=== PATIENT | male | born 1960 | race Two or more races ===

== ENCOUNTER 2016-09-27 22:49 | Inpatient (IN) | payer MEDICARE, MEDICAID ==
[~2016-09-27] VITALS: Ht 162.6 cm; Wt 81.2 kg
[~2016-09-27 22:49] MED LIST: METO25TA3 PO
[2016-09-28 00:43] VITALS: BP 130/81
[2016-09-28 00:45] VITALS: BP 130/81
[2016-09-28] MEDS ORDERED: ATOR20TA PO (01:21)
[2016-09-28] MEDS ORDERED: TAMS-12 PO (01:21)
[2016-09-28] MEDS ORDERED: OMEP40CA37 PO (01:21)
[2016-09-28] MEDS ORDERED: FLUT16SP BNOSTRILS (01:21)
[2016-09-28] MEDS ORDERED: METO-302 PO (01:21)
[2016-09-28] MEDS ORDERED: ZOLPIDEM TARTRATE 5 MG TABLET PO PRN (05:00)
[2016-09-28] MEDS ORDERED: ONDANSETRON HCL/PF 4 MG/2 ML VIAL IVP PRN (05:00)
[2016-09-28] MEDS ORDERED: ACETAMINOPHEN 325 MG TABLET PO PRN (05:00)
[2016-09-28] MEDS ORDERED: MAG HYDROX/AL HYDROX/SIMETH 30 ML UDC PO PRN (05:00)
[2016-09-28] MEDS ORDERED: CEFTRIAXONE 1 G in IV D5W 50 ML IV SCH (05:00)
[2016-09-28] MEDS ORDERED: Z GUARD REMEDY 2 OZ OINT TP PRN (05:00)
[2016-09-28] MEDS ORDERED: HYDROCODONE/APAP 5/325MG 1 EACH TABLET PO PRN (05:00)
[2016-09-28] MEDS ORDERED: MAGNESIUM HYDROXIDE 30 ML UDC PO PRN (05:00)
[2016-09-28] MEDS ORDERED: ENOXAPARIN SODIUM 40 MG/0.4 ML DISP.SYRIN SQ SCH (05:00)
[2016-09-28] MEDS ORDERED: ENOXAPARIN SODIUM 40 MG/0.4 ML DISP.SYRIN SQ ONE (05:15)
[2016-09-28] MEDS ORDERED: IV NS 0.9% 1,000 ML ONE (05:17)
[2016-09-28] MEDS ORDERED: IV SET PRIMARY PUMP SET 1 EA INFUS.SET MC ONE ×2 (05:17→21:56)
[2016-09-28] MEDS: IV NS 0.9% 1,000 ML IV PRN ×2 (05:22→22:10)
[2016-09-28] MEDS ORDERED: ACETAMINOPHEN 325 MG TABLET ONE (06:42)
[2016-09-28] MEDS ORDERED: Medication Not On Formulary EA (Omeprazole 1 CAP) PO SCH (07:30)
[2016-09-28 08:00] VITALS: BP 112/69
[2016-09-28] MEDS: PANTOPRAZOLE 40 MG TABLET.DR PO SCH (10:14)
[2016-09-28] MEDS: TAMSULOSIN 0.4 MG CAP.SR.24H PO SCH (10:14)
[2016-09-28] MEDS: METOPROLOL SUCCINATE 25 MG TAB.SR.24H PO SCH (10:15)
[2016-09-28 11:13] LABS: BASOPHILS # (AUTO) 0.1 /CMM (0.0-0.2); BASOPHILS % (AUTO) 0.6 % (0.0-2.0); EOSINOPHILS % (AUTO) 0.3 % (0.0-6.0); HEMATOCRIT 37 % (39-51); HEMOGLOBIN 12.5 g/dL (13.5-17.5); LYMPHOCYTES # (AUTO) 1.8 /CMM (0.8-4.8); LYMPHOCYTES % (AUTO) 10.9 % (20.0-44.0); MEAN CORPUSCULAR HEMOGLOBIN 29 PG (26.0-33.0); MEAN CORPUSCULAR HGB CONC 34 g/dl (31.0-36.0); MEAN CORPUSCULAR VOLUME 85 fL (80-96); MONOCYTES # (AUTO) 1.3 /CMM (0.1-1.30); MONOCYTES % (AUTO) 8.2 % (2.0-12.0); NEUTROPHILS # (AUTO) 12.9 /CMM (1.8-8.9); PLATELET COUNT (AUTO) 217 /CMM (150-450); RDW COEFFICIENT OF VARIATION 14.2 (11.5-15.0); RED BLOOD CELL COUNT(AUTO) 4.37 MIL/uL (4.5-6.0); WHITE BLOOD COUNT (AUTO) 16.1 K/uL (4.3-11.0)
[2016-09-28 11:25] LABS: CALCIUM, SERUM 8.4 mg/dL (8.5-10.1); CREATININE 0.9 mg/dL (0.6-1.3); POTASSIUM 3.7 mmol/L (3.5-5.1)
[2016-09-28 16:00] VITALS: BP 109/75
[2016-09-28 16:01] VITALS: BP 109/75
[2016-09-28] MEDS: FLUTICASONE PROPIONATE 16 GM BOTTLE NS SCH (16:15)
[2016-09-28 17:54] LABS: IRON, SERUM 25 ug/dl (50-175); TOTAL IRON BINDING CAPACITY 332 ug/dl (250-450)
[2016-09-28] MEDS ORDERED: SECONDARY IV SET 1 EA INFUS.SET MC ONE (19:53)
[2016-09-28 20:00] VITALS: BP 111/70
[2016-09-28] MEDS: CEFTRIAXONE 1 G in IV D5W 50 ML IV SCH (20:01)
[2016-09-29 06:30] LABS: BASOPHILS % (AUTO) 0.3 % (0.0-2.0); EOSINOPHILS # (AUTO) 0.1 /CMM (0.0-0.7); EOSINOPHILS % (AUTO) 0.7 % (0.0-6.0); HEMATOCRIT 37 % (39-51); HEMOGLOBIN 12.2 g/dL (13.5-17.5); LYMPHOCYTES # (AUTO) 1.4 /CMM (0.8-4.8); MEAN CORPUSCULAR HEMOGLOBIN 28 PG (26.0-33.0); MEAN CORPUSCULAR HGB CONC 33 g/dl (31.0-36.0); MEAN CORPUSCULAR VOLUME 85 fL (80-96); MONOCYTES # (AUTO) 1.5 /CMM (0.1-1.30); NEUTROPHILS # (AUTO) 10.9 /CMM (1.8-8.9); PLATELET COUNT (AUTO) 222 /CMM (150-450); RDW COEFFICIENT OF VARIATION 14.8 (11.5-15.0)
[2016-09-29 06:47] LABS: CALCIUM, SERUM 8.2 mg/dL (8.5-10.1); CREATININE 0.8 mg/dL (0.6-1.3); MAGNESIUM 1.9 mg/dL (1.8-2.4); PHOSPHORUS 2.9 mg/dL (2.5-4.9); POTASSIUM 3.6 mmol/L (3.5-5.1)
[2016-09-29 07:18] LABS: APPEARANCE,URINE CLEAR (CLEAR); BILIRUBIN,URINE NEGATIVE (NEGATIVE); BLOOD, URINE TRACE Ery/uL (NEGATIVE); COLOR,URINE YELLOW (YELLOW); KETONES,URINE NEGATIVE (NEGATIVE); LEUKOCYTE ESTERASE ,URINE TRACE (NEGATIVE); NITRITE, URINE NEGATIVE (NEGATIVE); PROTEIN,URINE NEGATIVE (NEGATIVE); UGLUCOSE NEGATIVE (NEGATIVE); UROBILINOGEN,URINE 0.2 EU/dL (0.2)
[2016-09-29 07:27] LABS: BACTERIA,URINE Rare /HPF (None Seen); SQUAMOUS EPITHELIAL CELL,UR None Seen /HPF (None Seen)
[2016-09-29 08:00] VITALS: BP 121/82
[2016-09-29] MEDS: PANTOPRAZOLE 40 MG TABLET.DR PO SCH (08:23)
[2016-09-29] MEDS: METOPROLOL SUCCINATE 25 MG TAB.SR.24H PO SCH (08:23)
[2016-09-29] MEDS: TAMSULOSIN 0.4 MG CAP.SR.24H PO SCH (08:23)
[2016-09-29] MEDS: FLUTICASONE PROPIONATE 16 GM BOTTLE NS SCH (08:24)
[2016-09-29] MEDS: ENOXAPARIN SODIUM 40 MG/0.4 ML DISP.SYRIN SQ SCH (08:24)
[2016-09-29] MEDS: ATORVASTATIN 10 MG TABLET PO SCH (10:05)
[2016-09-29 16:00] VITALS: BP 117/77
[2016-09-29 20:00] VITALS: BP 109/71
[2016-09-29] MEDS: CEFTRIAXONE 1 G in IV D5W 50 ML IV SCH (21:09)
[2016-09-30 06:40] LABS: BASOPHILS % (AUTO) 0.5 % (0.0-2.0); EOSINOPHILS # (AUTO) 0.2 /CMM (0.0-0.7); EOSINOPHILS % (AUTO) 2.1 % (0.0-6.0); HEMATOCRIT 36 % (39-51); LYMPHOCYTES # (AUTO) 1.8 /CMM (0.8-4.8); LYMPHOCYTES % (AUTO) 21.9 % (20.0-44.0); MEAN CORPUSCULAR HEMOGLOBIN 29 PG (26.0-33.0); MEAN CORPUSCULAR HGB CONC 34 g/dl (31.0-36.0); MEAN CORPUSCULAR VOLUME 86 fL (80-96); MONOCYTES % (AUTO) 12.2 % (2.0-12.0); NEUTROPHILS # (AUTO) 5.3 /CMM (1.8-8.9); NEUTROPHILS % (AUTO) 63.3 % (43.0-81.0); PLATELET COUNT (AUTO) 252 /CMM (150-450); RDW COEFFICIENT OF VARIATION 14.9 (11.5-15.0); RED BLOOD CELL COUNT(AUTO) 4.15 MIL/uL (4.5-6.0); WHITE BLOOD COUNT (AUTO) 8.4 K/uL (4.3-11.0)
[2016-09-30 06:52] LABS: CALCIUM, SERUM 8.2 mg/dL (8.5-10.1); CREATININE 0.8 mg/dL (0.6-1.3); MAGNESIUM 2.1 mg/dL (1.8-2.4); PHOSPHORUS 3.7 mg/dL (2.5-4.9); POTASSIUM 3.7 mmol/L (3.5-5.1)
[2016-09-30 08:00] VITALS: BP 114/77
[2016-09-30] MEDS: ATORVASTATIN 10 MG TABLET PO SCH (08:47)
[2016-09-30] MEDS: TAMSULOSIN 0.4 MG CAP.SR.24H PO SCH (08:47)
[2016-09-30] MEDS: PANTOPRAZOLE 40 MG TABLET.DR PO SCH (08:47)
[2016-09-30] MEDS: METOPROLOL SUCCINATE 25 MG TAB.SR.24H PO SCH (08:49)
[2016-09-30] MEDS: ENOXAPARIN SODIUM 40 MG/0.4 ML DISP.SYRIN SQ SCH (08:50)
[2016-09-30] MEDS: FLUTICASONE PROPIONATE 16 GM BOTTLE NS SCH (08:50)
[2016-09-30 09:00] VITALS: BP 114/77
[2016-09-30 16:00] VITALS: BP 114/81
[2016-09-30] MEDS ORDERED: CEPH-570 PO (17:01)
[2016-09-30 17:51] VITALS: BP 114/81
== END 2016-09-30 18:00 | disposition home or self-care (01) | DRG 690 ==
LOC: MEDSG2 09-28 00:34
PROVIDERS: ADMIT Internal Medicine; ATTEND Internal Medicine
DX: N12 Tubulo-interstitial nephritis, not specified as acute or chronic (principal); G61.81 Chronic inflammatory demyelinating polyneuritis; D47.2 Monoclonal gammopathy; K21.9 Gastro-esophageal reflux disease without esophagitis; M72.2 Plantar fascial fibromatosis; D63.8 Anemia in other chronic diseases classified elsewhere; I10 Essential (primary) hypertension; G62.9 Polyneuropathy, unspecified; N40.1 Benign prostatic hyperplasia with lower urinary tract symptoms; J38.3 Other diseases of vocal cords; N39.0 Urinary tract infection, site not specified; B96.89 Other specified bacterial agents as the cause of diseases classified elsewhere
CPT/HCPCS: 36415; 76770-TC; 80048-TC; 81000-TC; 83540-TC; 83735-TC; 84100-TC; 85025-TC; 87081-TC; 87086-TC; J0696; J1650; J7030; J7060; Z7610

== ENCOUNTER 2016-10-15 19:52 | Emergency (ER) | payer MEDICARE, MEDICAID ==
[~2016-10-15] VITALS: Ht 162.6 cm; Wt 79.8 kg
[~2016-10-15 19:52] MED LIST changes: +ATOR20TA PO; +CEPH-570 PO; +FLUT16SP BNOSTRILS; +METO-302 PO; +OMEP40CA37 PO; +TAMS-12 PO
--- NOTE | 2016-10-15 20:01 | NUR ---
56 YO MALE BB SELF. PT IS ALERT X 3, C/O DIFICULTY URINATING X 1 WK. PT DESCRIBES PAIN A CONSTANT BURNING, 6/10 BURNING, PROVOKED WITH URINATION. PT SKIN WARM AND DRY, RR EVEN AND UNLABORED. PT ASSISTED TO ER BED. AWAITING ORDERS FROM PROVIDER, WILL CONTINUE TO MONITOR
--- NOTE | 2016-10-15 20:08 | NUR ---
PT TO AMBULATED TO ER BED WITH WALKER
--- NOTE | 2016-10-15 20:12 | NUR ---
URINE SAMPLE OBTAINED AND SENT TO LAB
--- NOTE | 2016-10-15 20:17 | NUR ---
DR. FELTON AT BEDSIDE FOR EVAL.
[2016-10-15 20:25] LABS: APPEARANCE,URINE Slightly Cloudy (CLEAR); BILIRUBIN,URINE Negative (NEGATIVE); BLOOD, URINE Large Ery/uL (NEGATIVE); COLOR,URINE Orange (YELLOW); KETONES,URINE Negative (NEGATIVE); LEUKOCYTE ESTERASE ,URINE Large (NEGATIVE); NITRITE, URINE Negative (NEGATIVE); PH,URINE 5.5 (5.0-8.0); PROTEIN,URINE 100 mg/dl (NEGATIVE); UGLUCOSE Negative (NEGATIVE); UROBILINOGEN,URINE 0.2 EU/dL (0.2)
[2016-10-15 20:31] LABS: BASOPHILS # (AUTO) 0.1 /CMM (0.0-0.2); BASOPHILS % (AUTO) 0.6 % (0.0-2.0); EOSINOPHILS # (AUTO) 0.1 /CMM (0.0-0.7); EOSINOPHILS % (AUTO) 0.4 % (0.0-6.0); HEMATOCRIT 39 % (39-51); HEMOGLOBIN 12.5 g/dL (13.5-17.5); LYMPHOCYTES # (AUTO) 1.6 /CMM (0.8-4.8); LYMPHOCYTES % (AUTO) 8.9 % (20.0-44.0); MEAN CORPUSCULAR HEMOGLOBIN 27 PG (26.0-33.0); MEAN CORPUSCULAR HGB CONC 32 g/dl (31.0-36.0); MEAN CORPUSCULAR VOLUME 84 fL (80-96); MONOCYTES # (AUTO) 0.7 /CMM (0.1-1.30); MONOCYTES % (AUTO) 3.7 % (2.0-12.0); NEUTROPHILS # (AUTO) 15.2 /CMM (1.8-8.9); NEUTROPHILS % (AUTO) 86.4 % (43.0-81.0); PLATELET COUNT (AUTO) 299 /CMM (150-450); RDW COEFFICIENT OF VARIATION 13.5 (11.5-15.0); RED BLOOD CELL COUNT(AUTO) 4.66 MIL/uL (4.5-6.0); WHITE BLOOD COUNT (AUTO) 17.7 K/uL (4.3-11.0)
[2016-10-15 20:38] LABS: BACTERIA,URINE Moderate /HPF (None Seen); RBC,URINE 21-50 /HPF (0-2); SQUAMOUS EPITHELIAL CELL,UR Few /HPF (None Seen); WBC,URINE 51-80 /HPF (0-3)
[2016-10-15 20:42] LABS: CALCIUM, SERUM 8.6 mg/dL (8.5-10.1); POTASSIUM 3.7 mmol/L (3.5-5.1)
[2016-10-15 20:45] LABS: PROTHROMBIN TIME 10.4 SECS (9.5-12.7)
--- NOTE | 2016-10-15 21:03 | NUR ---
PT RETURNED FROM CT.
[2016-10-15] MEDS ORDERED: CEFTRIAXONE 1GM BAG (ER ONLY) 50 ML IV ONE (21:44)
[2016-10-15] MEDS: IV NS 0.9% 1,000 ML BAG IV ONE (21:51)
[2016-10-15] MEDS: CEFTRIAXONE 1GM BAG (ER ONLY) 1 GM/50 ML PIGGYBACK IV ONE (21:51)
--- NOTE | 2016-10-15 22:09 | NUR ---
DR. FELTON AT BEDSIDE SPEAKING TO PT REGARDING RESULTS.
--- NOTE | 2016-10-15 22:53 | NUR ---
IV removed. Catheter intact and site benign. Pressure and 4x4 applied to site. No bleeding noted. Patient discharged to home in stable condition. Written and verbal after care instructions given. Patient verbalizes understanding of instruction. ambulatory with a steady gait with personal walker.
[2016-10-15 22:54] VITALS: BP 135/87
== END 2016-10-15 22:55 | disposition home or self-care (01) ==
LOC: ER 19:52
DX: N39.0 Urinary tract infection, site not specified (principal); D47.2 Monoclonal gammopathy; E78.5 Hyperlipidemia, unspecified; G62.9 Polyneuropathy, unspecified; I10 Essential (primary) hypertension; I70.0 Atherosclerosis of aorta; K21.9 Gastro-esophageal reflux disease without esophagitis; K57.30 Diverticulosis of large intestine without perforation or abscess without bleeding; N28.1 Cyst of kidney, acquired; N40.0 Benign prostatic hyperplasia without lower urinary tract symptoms; R73.03 Prediabetes
CPT/HCPCS: 36415; 72128-TC; 80048-TC; 81000-TC; 85025-TC; 85730-TC; 87086-TC; 87186-TC; A4606; Z7610

== ENCOUNTER 2022-07-15 15:22 | Emergency (ER) | payer MEDICARE, OTHER ==
[~2022-07-15] VITALS: Ht 162.6 cm; Wt 81.2 kg
[~2022-07-15 15:22] MED LIST changes: -METO-302 PO; +METO25TA4 PO; +OMEP40CA21 PO; -OMEP40CA37 PO
--- NOTE | 2022-07-15 15:49 | NUR ---
[id number] GENERALIZED BODY PAIN AND CP X4 DAYS. 1 SPRAY OF NITRO AND 325 MG ASPIRIN GIVEN ON SCENE. PT ATTACHED TO MONITOR, HEART RATE IS ELEVATED. AWAITING MD ARCOS.
--- NOTE | 2022-07-15 15:59 | NUR ---
IV ESTABLISHED R AC 18. LABS DRAWN AND SENT.
[2022-07-15 16:14] LABS: BASOPHILS # (AUTO) 0.1 K/uL (0.0-0.2); BASOPHILS % (AUTO) 0.5 % (0.0-2.0); EOSINOPHILS % (AUTO) 0.9 % (0.0-6.0); HEMATOCRIT 44 % (39-51); HEMOGLOBIN 14.9 g/dL (13.5-17.5); LYMPHOCYTES # (AUTO) 1.1 K/uL (0.8-4.8); LYMPHOCYTES % (AUTO) 10.4 % (20.0-44.0); MEAN CORPUSCULAR HGB CONC 34 g/dl (31.0-36.0); MEAN CORPUSCULAR VOLUME 85 fL (80-96); MONOCYTES % (AUTO) 9.1 % (2.0-12.0); NEUTROPHILS # (AUTO) 8.6 K/uL (1.8-8.9); NEUTROPHILS % (AUTO) 79.1 % (43.0-81.0); PLATELET COUNT (AUTO) 280 K/uL (150-450); RED BLOOD CELL COUNT(AUTO) 5.18 MIL/uL (4.5-6.0); WHITE BLOOD COUNT (AUTO) 10.8 K/uL (4.3-11.0)
[2022-07-15 16:31] LABS: CALCIUM, SERUM 8.7 mg/dL (8.5-10.1); CARBON DIOXIDE 26 mmol/L (21-32); CHLORIDE 97 mmol/L (98-107); CREATININE 0.8 mg/dL (0.6-1.3); GLUCOSE 98 mg/dL (74-106); POTASSIUM 3.4 mmol/L (3.5-5.1); SODIUM SERUM 130 mmol/L (136-145); UREA NITROGEN, BLOOD 14 mg/dL (7-18)
[2022-07-15 16:37] LABS: ALANINE AMINOTRANSFERASE 30 U/L (12-78); ALBUMIN 2.1 g/dL (3.4-5.0); ALKALINE PHOSPHATASE 154 U/L (46-116); ASPARTATE AMINOTRANSFERASE 34 U/L (15-37); BILIRUBIN,DIRECT 0.6 mg/dL (0.0-0.2); BILIRUBIN,TOTAL 1.3 mg/dL (0.2-1.0); TOTAL PROTEIN, SERUM 8.1 g/dL (6.4-8.2)
[2022-07-15] MEDS ORDERED: IV NS 0.9% 250 ML IV ONE (17:13)
[2022-07-15] MEDS ORDERED: IOHEXOL-350 100 ML VIAL IV ONE (17:13)
[2022-07-15] MEDS ORDERED: POTASSIUM CHLORIDE 20 MEQ TAB.PRT.SR PO ONE ×2 (17:30→17:31)
[2022-07-15] MEDS ORDERED: IV NS 0.9% 1,000 ML IV ONE (17:30)
[2022-07-15] MEDS ORDERED: FUROSEMIDE 40 MG/4 ML VIAL IV ONE (19:30)
[2022-07-15] MEDS ORDERED: KETOROLAC TROMETHAMINE INJ 30 MG/ML VIAL IV ONE (19:30)
[2022-07-15] MEDS ORDERED: CYCLOBENZAPRINE 10 MG TABLET PO ONE (19:30)
--- NOTE | 2022-07-15 19:30 | NUR ---
Pt is noted in bed alert, responsive as report is received from the off going nurse that, Pt came from home C/P Generalized body pain and chest pain x4days , 1Spray of Nitro and 325mg PO off ASA was given on Scene. Pt care continue as he C/O pain and MD is been notify.
[2022-07-15] MEDS ORDERED: CYCL5TAB PO (20:06)
[2022-07-15] MEDS ORDERED: FUROSEMIDE 40 MG/4 ML VIAL ONE (20:18)
--- NOTE | 2022-07-15 20:25 | NUR ---
Lasix 40mg IVP, Toradol 30mg IVP and fLEXRIL 10mg PO given as ordred. Pt care continue as he will be discharge shortly.
--- NOTE | 2022-07-15 20:53 | NUR ---
[facility] CALLED ETA 75-90 MINUTES
--- NOTE | 2022-07-15 21:20 | NUR ---
Toradol 30mg IVP and Flexeril 10mg PO noted effective as pain is now 2/10. Pt care continue.
--- NOTE | 2022-07-15 22:59 | NUR ---
Pt si noted off the unit by Ambulance and family is been informed at [phone] as he is been discharge to home with all discharge instructions given as IV Access discontinue with no S/S off distress or C/O Pain.
[2022-07-15 23:10] VITALS: BP 107/70
== END 2022-07-15 23:00 | disposition home or self-care (01) ==
LOC: ER 15:24
DX: M79.10 Myalgia, unspecified site (principal); I10 Essential (primary) hypertension; E78.5 Hyperlipidemia, unspecified; K21.9 Gastro-esophageal reflux disease without esophagitis; Z60.2 Problems related to living alone; Z79.899 Other long term (current) drug therapy
CPT/HCPCS: 99285; 70450; 96374; 71045; 96361; 96375; 93005; 71275; 85025; 80048; 80076; 36415; 84484 ×2; J1940; J1885; J7030; J7050; Q9967